=== PATIENT | male | born 1990 | race American Indian/Alaskan Native ===

== ENCOUNTER 2019-01-28 11:22 | Emergency (ER) | payer SELFPAY ==
[2019-01-28 11:36] VITALS: BP 129/81
[2019-01-28] MEDS ORDERED: DELTASONE PO ONE (12:38)
--- NOTE | 2019-01-28 13:04 | Emergency Department Report ---
Minor Respiratory - HPI Chief Complaint: Fever Stated Complaint: HEADACHE/TEMP HIGH/WEAK Time Seen by Provider: 01/28/19 12:20 Duration: 2 Days Pain Location: Facial Severity: moderate Minor Respiratory: Yes Rhinorrhea, Yes Able to Tolerate Fluids, Yes Cough, Yes Fever (Tm 100.3), No Sore Throat, No Ear Pain, No Sick Contacts, No Hemoptysis, No Chest Pain, No Shortness of Breath Other History: Patient with congestion and full sensation in the mid face ED Review of Systems ROS: Stated complaint: HEADACHE/TEMP HIGH/WEAK Other details as noted in HPI Comment: All other systems reviewed and negative ED Past Medical Hx - Past Medical History Previous Medical History?: No - Surgical History Past Surgical History?: No - Social History Smoking Status: Current Every Day Smoker Substance Use Type: Alcohol - Medications Home Medications: Home Medications Medication Instructions Recorded Confirmed Last Taken Type Amoxicillin/Potassium Clav 1 each PO BID #14 tablet 01/28/19 Unknown Rx [Augmentin 875-125 Tablet] Fluticasone [Flonase] 1 spray NS QDAY #1 bottle 01/28/19 Unknown Rx predniSONE [Deltasone] 20 mg PO QDAY #5 tab 01/28/19 Unknown Rx Minor Respiratory Exam - Exam General: Vital signs noted. No distress. Alert and acting appropriately. HEENT: Yes Moist Mucous Membranes, Yes Frontal Tenderness, No Pharyngeal Erythema, No Pharyngeal Exudates, No Rhinorrhea, No Conjuctival Injection, No Maxillary Tenderness Ear: Neither TM Bulge, Neither TM Erythema, Neither EAC Pain, Neither EAC Discharge Neck: Yes Supple, No Adenopathy Lungs: Yes Good Air Exchange, No Wheezes, No Ronchi, No Stridor, No Cough, No Labored Respirations, No Retractions, No Use of Accessory Muscles, No Other Abnormal Lung Sounds Heart: Yes Regular, No Murmur Abdomen: Yes Normal Bowel Sounds, No Tenderness, No Peritoneal Signs Skin: No Rash, No Edema Neurologic: Alert and oriented, no deficits. Musculoskeletal: Unremarkable. ED Course Vital Signs 01/28/19 11:34 Temperature 98.1 F Pulse Rate 90 Respiratory 16 Rate Blood Pressure 129/81 [Left] O2 Sat by Pulse 99 Oximetry Critical care attestation.: If time is entered above; I have spent that time in minutes in the direct care of this critically ill patient, excluding procedure time. ED Disposition Clinical Impression: Acute sinusitis Qualifiers: Sinusitis location: frontal Recurrence: non-recurrent Qualified Code(s): J01.10 - Acute frontal sinusitis, unspecified Disposition: TO HOME OR SELFCARE Is pt being admited?: No Does the pt Need Aspirin: No Condition: Stable Instructions: Sinusitis (ED) Referrals: ODETTE HOLLY MD [Primary Care Provider] - 3-5 Days Time of Disposition: 13:03
== END 2019-01-28 13:32 | disposition home or self-care (01) ==
LOC: ED 11:22
DX: J01.90 Acute sinusitis, unspecified (principal); F17.200 Nicotine dependence, unspecified, uncomplicated
CPT/HCPCS: 99282; J7512